=== PATIENT | female | born 1940 | race Caucasian/White ===

== ENCOUNTER 2019-05-09 10:39 | Inpatient (IN) | payer MEDICARE, OTHER ==
[2019-05-09] MEDS ORDERED: Albuterol 0.083% 2.5 MG/3 ML Neb Soln NEB ONE ×2 (10:58→13:46)
--- NOTE | 2019-05-09 11:16 | EDM.PDOC ---
ED HPI GENERAL MEDICAL PROBLEM - General Chief Complaint: Respiratory Problem Stated Complaint: SOB ON OXYGEN Time Seen by Provider: 05/09/19 10:54 Source of Information: Reports: Patient, RN Notes Reviewed History Limitations: Reports: No Limitations - History of Present Illness INITIAL COMMENTS - FREE TEXT/NARRATIVE: Patient is a 78-year-old female who presents to the ED for the evaluation of increased shortness of breath. The patient is on 2 L chronically at home, but states she has been feeling increasingly more short of breath over the past couple days, she is now having issues completing complete sentences due to the shortness of breath. She notes she is unable to walk very far due to this as well. She is feeling lightheaded at times, as she believes she is breathing quite fast. She notes that she has a small amount of mid chest discomfort, when she coughs, or when she pushes on her chest. She is coughing up phlegm, this is yellow-tinged phlegm with a little bit of blood streaks in it as well. She was found to have a fever at time of triage of 101.1 F. Although she does not states she was having a fever at home. O2 sats on oxygen 2 L here is 94%. Patient states that she was in [place] visiting her daughter and spend quite a bit of time at the daughter's daycare, and was wondering if she did not get sick from a child there. She did receive a flu shot this year. Her primary care provider is Dr. Mackenzie. She is not having any abdominal pain, nor is she having any nausea/vomiting or diarrhea. - Related Data Allergies Allergy/AdvReac Type Severity Reaction Status Date / Time No Known Allergies Allergy Verified 05/09/19 10:56 Home Meds: Home Meds Budesonide/Formoterol [Symbicort 160-4.5 MCG] 05/09/19 [History] Losartan Potassium 05/09/19 [History] Losartan Potassium 05/09/19 [History] Omeprazole 05/09/19 [History] Simvastatin 05/09/19 [History] Torsemide 05/09/19 [History] predniSONE 05/09/19 [History] Past Medical History Respiratory History: Reports: COPD (on 2L chronic) ED ROS GENERAL - Review of Systems Review Of Systems: See Below Constitutional: Reports: Fever. Denies: Chills Respiratory: Reports: Shortness of Breath, Cough, Sputum Cardiovascular: Reports: Chest Pain (mid chest discomfort with cough/direct chest pressure) GI/Abdominal: Denies: Abdominal Pain, Diarrhea, Nausea, Vomiting Skin: Denies: Cyanosis, Pallor Neurological: Denies: Headache ED EXAM, GENERAL - Physical Exam Exam: See Below Exam Limited By: No Limitations General Appearance: Alert, WD/WN, Mild Distress (pt is speaking in broken sentences) Ears: Normal External Exam Nose: Normal Inspection Throat/Mouth: Normal Inspection, Normal Lips, Normal Teeth, Normal Gums, Normal Oropharynx, Normal Voice, No Airway Compromise Head: Atraumatic, Normocephalic Neck: Normal Inspection Respiratory/Chest: Decreased Breath Sounds (diffuse throughout), Rhonchi ( diffuse throughout), Wheezing (mild wheezing throughout), Prolonged Expiration Cardiovascular: Normal Peripheral Pulses, Regular Rate, Rhythm, No Murmur Peripheral Pulses: 3+: Radial (L), Radial (R) GI/Abdominal: Normal Bowel Sounds, Soft, Non-Tender, No Distention, No Mass Back Exam: Normal Inspection Extremities: Normal Inspection, Normal Capillary Refill Neurological: Alert, Oriented, Normal Cognition, No Motor/Sensory Deficits Psychiatric: Normal Affect, Normal Mood Skin Exam: Warm, Dry, Intact, Normal Color, No Rash EKG INTERPRETATION EKG Date: 05/09/19 Time: 11:14 Rhythm: NSR Rate (Beats/Min): 94 [place]: Normal P-Wave: Present QRS: Normal ST-T: Normal QT: Normal Comparison: NA - No Prior EKG EKG Interpretation Comments: Reviewed with Dr. Marcial and myself. No acute ischemic changes noted. Course - Vital Signs Last Recorded V/S: Last Vital Signs Temp 101.1 F H 05/09/19 10:51 Pulse 97 05/09/19 13:16 Resp 21 H 05/09/19 13:16 BP 167/73 H 05/09/19 13:16 Pulse Ox 97 05/09/19 13:16 - Orders/Labs/Meds Orders: Active Orders 24 hr Category Date Time Status EKG Documentation Completion [RC] STAT Care 05/09/19 11:00 Ordered Peripheral IV Care [RC] . DIRECTED Care 05/09/19 13:38 Ordered RT Aerosol Therapy [RC] ASDIRECTED Care 05/09/19 10:58 Ordered Chest 2V [CR] Stat Exams 05/09/19 11:00 Ordered CULTURE BLOOD [BC] Stat Lab 05/09/19 13:45 Ordered CULTURE BLOOD [BC] Stat Lab 05/09/19 13:45 Ordered PRO B-TYPE NATRIUR PEPT,BNPPRO [CHEM] Stat Lab 05/09/19 11:00 Ordered Sodium Chloride 0.9% [Saline Flush] Med 05/09/19 13:38 Ordered 10 ml FLUSH ASDIRECTED PRN Blood Culture x2 Reflex Set [OM.PC] Stat Oth 05/09/19 13:45 Ordered Peripheral IV Insertion Adult [OM.PC] Stat Oth 05/09/19 13:38 Ordered Medication Orders Sodium Chloride (Saline Flush) 10 ml FLUSH ASDIRECTED PRN PRN Reason: Keep Vein Open Labs: Laboratory Tests 05/09/19 05/09/19 05/09/19 Range/Units 11:20 11:20 11:20 WBC 13.32 H (3.98-10.04) K/mm3 RBC 3.80 L (3.98-5.22) M/mm3 Hgb 11.0 L (11.2-15.7) gm/dl Hct 36.2 (34.1-44.9) % MCV 95.3 H (79.4-94.8) fl MCH 28.9 (25.6-32.2) pg MCHC 30.4 L (32.2-35.5) g/dl RDW Std Deviation 44.3 (36.4-46.3) fL Plt Count 226 (182-369) K/mm3 MPV 8.7 L (9.4-12.3) fl Neutrophils % (Manual) 85 H (40-60) % Band Neutrophils % 0 (0-10) % Lymphocytes % (Manual) 7 L (20-40) % Atypical Lymphs % 0 % Monocytes % (Manual) 7 (2-10) % Eosinophils % (Manual) 1 (0.7-5.8) % Basophils % (Manual) 0 L (0.1-1.2) Platelet Estimate Adequate Anisocytosis 1+ slight RBC Morph Comment Not Reportable PT 10.3 (9.7-12.0) SECONDS INR 0.94 APTT 27 (22-31) SECONDS Puncture Site ABG pH (7.35-7.45) ABG pCO2 (35.0-45.0) mmHg ABG pO2 (80.0-100.0) mmHg ABG HCO3 (22.0-26.0) meq/L ABG O2 Saturation (96.0-97.0) % ABG Base Excess (-2-2.0) A-a Gradient mmHg O2 Delivery Device Oxygen Flow Rate FiO2 (21.00-100.00) % Sodium 144 (136-145) mEq/L Potassium 4.4 (3.5-5.1) mEq/L Chloride 103 (98-107) mEq/L Carbon Dioxide 35 H (21-32) mEq/L Anion Gap 10.4 (5-15) BUN 10 (7-18) mg/dL Creatinine 0.7 (0.55-1.02) mg/dL Est Cr Clr Drug Dosing 57.20 mL/min Estimated GFR (MDRD) > 60 (>60) mL/min BUN/Creatinine Ratio 14.3 (14-18) Glucose 127 H (83-115) mg/dL Calcium 9.1 (8.5-10.1) mg/dL Total Bilirubin 0.9 (0.2-1.0) mg/dL AST 18 (15-37) U/L ALT 19 (14-59) U/L Alkaline Phosphatase 62 (46-116) U/L Troponin I < 0.017 (0.00-0.056) ng/mL Total Protein 7.0 (6.4-8.2) g/dl Albumin 3.4 (3.4-5.0) g/dl Globulin 3.6 gm/dL Albumin/Globulin Ratio 0.9 L (1-2) 05/09/19 Range/Units 11:24 WBC (3.98-10.04) K/mm3 RBC (3.98-5.22) M/mm3 Hgb (11.2-15.7) gm/dl Hct (34.1-44.9) % MCV (79.4-94.8) fl MCH (25.6-32.2) pg MCHC (32.2-35.5) g/dl RDW Std Deviation (36.4-46.3) fL Plt Count (182-369) K/mm3 MPV (9.4-12.3) fl Neutrophils % (Manual) (40-60) % Band Neutrophils % (0-10) % Lymphocytes % (Manual) (20-40) % Atypical Lymphs % % Monocytes % (Manual) (2-10) % Eosinophils % (Manual) (0.7-5.8) % Basophils % (Manual) (0.1-1.2) Platelet Estimate Anisocytosis RBC Morph Comment PT (9.7-12.0) SECONDS INR APTT (22-31) SECONDS Puncture Site Lt radial ABG pH 7.40 (7.35-7.45) ABG pCO2 60.8 H (35.0-45.0) mmHg ABG pO2 66.0 L (80.0-100.0) mmHg ABG HCO3 36.4 H (22.0-26.0) meq/L ABG O2 Saturation 92.1 L (96.0-97.0) % ABG Base Excess 10.0 H (-2-2.0) A-a Gradient 58 mmHg O2 Delivery Device Nasal cannula Oxygen Flow Rate 2.0 FiO2 28.00 (21.00-100.00) % Sodium (136-145) mEq/L Potassium (3.5-5.1) mEq/L Chloride (98-107) mEq/L Carbon Dioxide (21-32) mEq/L Anion Gap (5-15) BUN (7-18) mg/dL Creatinine (0.55-1.02) mg/dL Est Cr Clr Drug Dosing mL/min Estimated GFR (MDRD) (>60) mL/min BUN/Creatinine Ratio (14-18) Glucose (83-115) mg/dL Calcium (8.5-10.1) mg/dL Total Bilirubin (0.2-1.0) mg/dL AST (15-37) U/L ALT (14-59) U/L Alkaline Phosphatase (46-116) U/L Troponin I (0.00-0.056) ng/mL Total Protein (6.4-8.2) g/dl Albumin (3.4-5.0) g/dl Globulin gm/dL Albumin/Globulin Ratio (1-2) Meds: Medications Generic Name Dose Route Start Last Admin Trade Name Freq PRN Reason Stop Dose Admin Sodium Chloride 10 ml 05/09/19 13:38 Saline Flush FLUSH ASDIRECTED PRN Keep Vein Open Discontinued Medications Generic Name Dose Route Start Last Admin Trade Name Angelq PRN Reason Stop Dose Admin Albuterol 2.5 mg 05/09/19 10:58 05/09/19 11:30 Proventil Neb Carlos NEB 05/09/19 10:59 2.5 mg ONETIME ONE Administration Albuterol 2.5 mg 05/09/19 13:46 Proventil Neb Renukan NEB 05/09/19 13:47 ONETIME ONE - Re-Assessments/Exams Free Text/Narrative Re-Assessment/Exam: 05/09/19 11:16 Patient presents to the ED for evaluation of increased shortness of breath while being on oxygen therapy. I did order albuterol nebulizer, EKG, and ABG, CBC, CMP, BNP, influenza swab, troponin, and coagulation studies to further evaluate her symptoms. I likely believe she has caught some sort of respiratory illness, pneumonia versus other while at the daycare. 05/09/19 13:38 Patient's laboratory work-up has been done, and does demonstrate an elevated white count at 13.32 with 85% neutrophils no bands. ABG shows stable respiratory acidosis, pH of 7.4, PCO2 of 60.8. Patient is metabolic panel is within normal limits, troponin is negative, EKG also demonstrated no acute abnormalities reviewed by myself or Dr. Marcial, her chest x-ray is also suggestive of right lower lobe pneumonia, official radiology read does confirm this: Chest: 2 views of the chest were obtained. Comparison: No prior chest imaging is available. Heart size is normal. Tortuous thoracic aorta is noted. Scoliosis is noted within the spine. Focal parenchymal density is noted within the right lung base. Lungs otherwise are clear. Impression: 1. Focal density within the right lung base. This may represent atelectasis, changes from aspiration or even small area of pneumonia if patient has infectious symptoms. 2. Scoliosis. 3. No other acute finding is seen. At this time I do believe the patient would benefit from hospitalization. I will repeat another nebulizer with her, and hope to get her admitted Departure - Departure Time of Disposition: 13:48 Disposition: Admitted As Inpatient 66 Condition: Fair Clinical Impression: Pneumonia Qualifiers: Pneumonia type: due to unspecified organism Laterality: right Lung location: lower lobe of lung Qualified Code(s): J18.9 - Pneumonia, unspecified organism - Discharge Information *PRESCRIPTION DRUG MONITORING PROGRAM REVIEWED*: No *COPY OF PRESCRIPTION DRUG MONITORING REPORT IN PATIENT NASIR: No Referrals: Carloz Mackenzie MD [Primary Care Provider] - Forms: ED Department Discharge Sepsis Event Note - Evaluation Sepsis Screening Result: Possible Sepsis Risk - Focused Exam Vital Signs: Vital Signs Temp Pulse Pulse Resp BP BP Pulse Ox 05/09/19 13:16 97 21 H 167/73 H 97 05/09/19 13:15 96 23 H 97 05/09/19 13:01 95 24 H 171/82 H 97 05/09/19 13:00 95 42 H 97 05/09/19 12:46 96 24 H 162/79 H 96 05/09/19 12:45 96 25 H 95 05/09/19 12:31 96 23 H 168/77 H 94 L 05/09/19 12:30 96 20 94 L 05/09/19 12:17 93 30 H 164/75 H 93 L 05/09/19 12:16 92 28 H 93 L 05/09/19 12:14 92 23 H 107/96 H 92 L 05/09/19 12:13 95 26 H 93 L 05/09/19 11:46 97 24 H 160/71 H 96 05/09/19 11:45 98 25 H 95 05/09/19 11:31 97 22 H 157/63 H 98 05/09/19 11:30 97 24 H 96 05/09/19 11:16 92 20 157/63 H 96 05/09/19 11:15 95 26 H 96 05/09/19 11:10 92 15 93 L 05/09/19 10:58 05/09/19 10:51 101.1 F H 94 18 132/76 94 L Pulse Ox 05/09/19 13:16 05/09/19 13:15 05/09/19 13:01 05/09/19 13:00 05/09/19 12:46 05/09/19 12:45 05/09/19 12:31 05/09/19 12:30 05/09/19 12:17 05/09/19 12:16 05/09/19 12:14 05/09/19 12:13 05/09/19 11:46 05/09/19 11:45 05/09/19 11:31 05/09/19 11:30 05/09/19 11:16 05/09/19 11:15 05/09/19 11:10 05/09/19 10:58 96 05/09/19 10:51 Date Exam was Performed: 05/09/19 Time Exam was Performed: 13:47 - My Orders Last 24 Hours: My Active Orders 05/09/19 10:58 RT Aerosol Therapy [RC] ASDIRECTED 05/09/19 11:00 EKG Documentation Completion [RC] STAT Chest 2V [CR] Stat PRO B-TYPE NATRIUR PEPT,BNPPRO [CHEM] Stat 05/09/19 13:38 Peripheral IV Care [RC] . DIRECTED Sodium Chloride 0.9% [Saline Flush] 10 ml FLUSH ASDIRECTED PRN Peripheral IV Insertion Adult [OM.PC] Stat 05/09/19 13:45 CULTURE BLOOD [BC] Stat CULTURE BLOOD [BC] Stat Blood Culture x2 Reflex Set [OM.PC] Stat - Assessment/Plan Last 24 Hours: My Active Orders 05/09/19 10:58 RT Aerosol Therapy [RC] ASDIRECTED 05/09/19 11:00 EKG Documentation Completion [RC] STAT Chest 2V [CR] Stat PRO B-TYPE NATRIUR PEPT,BNPPRO [CHEM] Stat 05/09/19 13:38 Peripheral IV Care [RC] . DIRECTED Sodium Chloride 0.9% [Saline Flush] 10 ml FLUSH ASDIRECTED PRN Peripheral IV Insertion Adult [OM.PC] Stat 05/09/19 13:45 CULTURE BLOOD [BC] Stat CULTURE BLOOD [BC] Stat Blood Culture x2 Reflex Set [OM.PC] Stat
[2019-05-09] MEDS ORDERED: Sodium Chloride 0.9% 10 ML Syringe FLUSH PRN (13:38)
[2019-05-09] MEDS ORDERED: cefTRIAXone 2 GM in Sodium Chloride 0.9% 100 ML IV ONE (13:56)
--- NOTE | 2019-05-09 14:03 | CR ---
Chest: Two views of the chest were obtained. Comparison: No prior chest imaging is available. Heart size is normal. Tortuous thoracic aorta is noted. Scoliosis is noted within the spine. Focal parenchymal density is noted within the right lung base. Lungs otherwise are clear. Impression: 1. Focal density within the right lung base. This may represent atelectasis, changes from aspiration or even small area of pneumonia if patient has infectious symptoms. 2. Scoliosis. 3. No other acute finding is seen. Diagnostic code #3 This report was dictated in [place] Standard Time
[2019-05-09] MEDS ORDERED: Albuterol 0.083% 2.5 MG/3 ML Neb Soln NEB PRN (15:15)
[2019-05-09] MEDS: Albuterol/Ipratropium 3.0-0.5 MG/3 ML Neb Soln NEB SCH ×2 (15:35→21:10)
[2019-05-09] MEDS ORDERED: Acetaminophen 325 MG Tab PO PRN (16:07)
[2019-05-09] MEDS ORDERED: Ondansetron 4 MG/2 ML SDV IV PRN (16:07)
--- NOTE | 2019-05-09 16:07 | PCM.HP.2 ---
H&P History of Present Illness - General Date of Service: 05/09/19 Admit Problem/Dx: Admission Diagnosis/Problem Admission Diagnosis/Problem Pneumonia - History of Present Illness Initial Comments - Free Text/Narative: 76-year-old female with history of oxygen dependent lung disease, which appears to be from restrictive lung disease from her scoliosis with a component of COPD , presented to the emergency room with worsening shortness of breath, weakness, cough with sputum production over the last 2 days. Patient states that she was in [place] at her daughters, who runs a daycare out of her home, for last 10 days. Several ill children were in the house with her. Yesterday she started having increasing cough with sputum production. Patient does states she has a moderate amount of sputum production on a normal day. Phlegm is yellow-tinged with a bit of blood streaking as well. She had a fever 101.1 in triage. She was found to be tachypneic with increased work of breathing in the emergency room. 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 She was started on 24-hour O2 at 1 L approximately 10+ years ago. She states she is normally on 1 to 2 L, 2 L with ambulation, at baseline. Patient also states that she has been off of her water pill, torsemide, for the last 4 days because she does not like to travel while taking it. She states she is on it for peripheral edema and not for heart failure. EKG showed a normal sinus rhythm with a ventricular rate of 94 bpm. In the emergency room chest x-ray showed a focal density within the right lung base. This may represent atelectasis, change from aspiration, or even small area of pneumonia patient has infectious symptoms. Also seen with severe scoliosis. Otherwise normal EKG. Laboratory test: WBC 13.32 with 0% bands and 85% neutrophils, hemoglobin 11.0, platelet count 226, sodium 144, potassium 4.4, chloride 103, bicarbonate 35, BUN 10, creatinine 0.7, glucose 127, troponin I less than 0.017. Arterial blood gas: pH 7.40, PCO2 of 60.8, PO2 of 66.0, HCO3 36.4, oxygen saturation 92.1% on 2 L nasal cannula. - Related Data Allergies/Adverse Reactions: Allergies Allergy/AdvReac Type Severity Reaction Status Date / Time No Known Allergies Allergy Verified 05/09/19 10:56 Home Medications: Home Meds Budesonide/Formoterol [Symbicort 160-4.5 MCG] 2 puff INH BID 05/09/19 [History] Fluticasone/Vilanterol [Breo Ellipta 100-25 MCG Inhalation Kit] 1 puff INH DAILY 05/09/19 [History] Losartan Potassium 25 mg PO DAILY 05/09/19 [History] Omeprazole 20 mg PO DAILY 05/09/19 [History] Simvastatin 20 mg PO DAILY 05/09/19 [History] Torsemide 20 mg PO DAILY 05/09/19 [History] Past Medical History HEENT History: Reports: Impaired Vision Cardiovascular History: Reports: Heart Failure, High Cholesterol, Hypertension Respiratory History: Reports: COPD, SOB Musculoskeletal History: Reports: Osteoporosis - Past Surgical History HEENT Surgical History: Reports: Cataract Surgery, Detached Retina Social & Family History - Family History Family Medical History: Noncontributory - Tobacco Use Smoking Status *Q: Never Smoker Second Hand Smoke Exposure: No - Caffeine Use Caffeine Use: Reports: Coffee Other Caffeine Use: 4 cups/day - Recreational Drug Use Recreational Drug Use: No H&P Review of Systems - Review of Systems: Review Of Systems: Comprehensive ROS is negative, except as noted in HPI. Exam - Exam Exam: See Below - Vital Signs Vital Signs: Last Vital Signs Temp 100.9 F H 05/09/19 14:43 Pulse 96 05/09/19 14:43 Resp 48 H 05/09/19 14:43 BP 130/58 L 05/09/19 14:43 Pulse Ox 94 L 05/09/19 15:35 Weight: 173 lb 9.6 oz - Exam Quality Assessment: Supplemental Oxygen General: Alert, Oriented, 4 HEENT: Conjunctiva Clear, Hearing Intact, Mucosa Moist & [place] Neck: Supple, Trachea Midline, 2 Lungs: Rhonchi (Throughout both lung hoffman). No: Normal Respiratory Effort ( Increased respiratory rate and effort) Cardiovascular: Regular Rate, Regular Rhythm GI/Abdominal Exam: Normal Bowel Sounds, Soft, Non-Tender, No Organomegaly, No Distention Extremities: Normal Inspection, Normal Range of Motion, Non-Tender, No Pedal Edema Skin: Warm, Dry, Intact Neuro Extensive - Mental Status: Alert, Oriented x3, Normal Mood/Affect, Normal Cognition, Memory Intact Neuro Extensive - Motor, Sensory, Reflexes: CN II-XII Intact Psychiatric: Alert, Normal Affect, Normal Mood - Patient Data Lab Results Last 24 hrs: Laboratory Results - last 24 hr 05/09/19 05/09/19 05/09/19 Range/Units 11:20 11:20 11:20 WBC 13.32 H (3.98-10.04) K/mm3 RBC 3.80 L (3.98-5.22) M/mm3 Hgb 11.0 L (11.2-15.7) gm/dl Hct 36.2 (34.1-44.9) % MCV 95.3 H (79.4-94.8) fl MCH 28.9 (25.6-32.2) pg MCHC 30.4 L (32.2-35.5) g/dl RDW Std Deviation 44.3 (36.4-46.3) fL Plt Count 226 (182-369) K/mm3 MPV 8.7 L (9.4-12.3) fl Neutrophils % (Manual) 85 H (40-60) % Band Neutrophils % 0 (0-10) % Lymphocytes % (Manual) 7 L (20-40) % Atypical Lymphs % 0 % Monocytes % (Manual) 7 (2-10) % Eosinophils % (Manual) 1 (0.7-5.8) % Basophils % (Manual) 0 L (0.1-1.2) Platelet Estimate Adequate Anisocytosis 1+ slight RBC Morph Comment Not Reportable PT 10.3 (9.7-12.0) SECONDS INR 0.94 APTT 27 (22-31) SECONDS Puncture Site ABG pH (7.35-7.45) ABG pCO2 (35.0-45.0) mmHg ABG pO2 (80.0-100.0) mmHg ABG HCO3 (22.0-26.0) meq/L ABG O2 Saturation (96.0-97.0) % ABG Base Excess (-2-2.0) A-a Gradient mmHg O2 Delivery Device Oxygen Flow Rate FiO2 (21.00-100.00) % Sodium 144 (136-145) mEq/L Potassium 4.4 (3.5-5.1) mEq/L Chloride 103 (98-107) mEq/L Carbon Dioxide 35 H (21-32) mEq/L Anion Gap 10.4 (5-15) BUN 10 (7-18) mg/dL Creatinine 0.7 (0.55-1.02) mg/dL Est Cr Clr Drug Dosing 57.20 mL/min Estimated GFR (MDRD) > 60 (>60) mL/min BUN/Creatinine Ratio 14.3 (14-18) Glucose 127 H (83-115) mg/dL Calcium 9.1 (8.5-10.1) mg/dL Total Bilirubin 0.9 (0.2-1.0) mg/dL AST 18 (15-37) U/L ALT 19 (14-59) U/L Alkaline Phosphatase 62 (46-116) U/L Troponin I < 0.017 (0.00-0.056) ng/mL NT-Pro-B Natriuret Pep (0-450) pg/mL Total Protein 7.0 (6.4-8.2) g/dl Albumin 3.4 (3.4-5.0) g/dl Globulin 3.6 gm/dL Albumin/Globulin Ratio 0.9 L (1-2) 05/09/19 05/09/19 Range/Units 11:20 11:24 WBC (3.98-10.04) K/mm3 RBC (3.98-5.22) M/mm3 Hgb (11.2-15.7) gm/dl Hct (34.1-44.9) % MCV (79.4-94.8) fl MCH (25.6-32.2) pg MCHC (32.2-35.5) g/dl RDW Std Deviation (36.4-46.3) fL Plt Count (182-369) K/mm3 MPV (9.4-12.3) fl Neutrophils % (Manual) (40-60) % Band Neutrophils % (0-10) % Lymphocytes % (Manual) (20-40) % Atypical Lymphs % % Monocytes % (Manual) (2-10) % Eosinophils % (Manual) (0.7-5.8) % Basophils % (Manual) (0.1-1.2) Platelet Estimate Anisocytosis RBC Morph Comment PT (9.7-12.0) SECONDS INR APTT (22-31) SECONDS Puncture Site Lt radial ABG pH 7.40 (7.35-7.45) ABG pCO2 60.8 H (35.0-45.0) mmHg ABG pO2 66.0 L (80.0-100.0) mmHg ABG HCO3 36.4 H (22.0-26.0) meq/L ABG O2 Saturation 92.1 L (96.0-97.0) % ABG Base Excess 10.0 H (-2-2.0) A-a Gradient 58 mmHg O2 Delivery Device Nasal cannula Oxygen Flow Rate 2.0 FiO2 28.00 (21.00-100.00) % Sodium (136-145) mEq/L Potassium (3.5-5.1) mEq/L Chloride (98-107) mEq/L Carbon Dioxide (21-32) mEq/L Anion Gap (5-15) BUN (7-18) mg/dL Creatinine (0.55-1.02) mg/dL Est Cr Clr Drug Dosing mL/min Estimated GFR (MDRD) (>60) mL/min BUN/Creatinine Ratio (14-18) Glucose (83-115) mg/dL Calcium (8.5-10.1) mg/dL Total Bilirubin (0.2-1.0) mg/dL AST (15-37) U/L ALT (14-59) U/L Alkaline Phosphatase (46-116) U/L Troponin I (0.00-0.056) ng/mL NT-Pro-B Natriuret Pep 351 (0-450) pg/mL Total Protein (6.4-8.2) g/dl Albumin (3.4-5.0) g/dl Globulin gm/dL Albumin/Globulin Ratio (1-2) Result Diagrams: 05/09/19 11:20 05/09/19 11:20 [facility] Results Last 24 hrs: Microbiology 05/09/19 12:44 Influenza Type A Antigen Screen - Final Nasal, Unspecified NEGATIVE INFLUENZA A VIRUS AG REFERENCE RANGE: NEGATIVE Influenza Type B Antigen Screen - Final NEGATIVE INFLUENZA B VIRUS AG REFERENCE RANGE: NEGATIVE Imaging Impressions Last 24 hrs: Chest: 2 views of the chest were obtained. Comparison: No prior chest imaging is available. Heart size is normal. Tortuous thoracic aorta is noted. Scoliosis is noted within the spine. Focal parenchymal density is noted within the right lung base. Lungs otherwise are clear. Impression: 1. Focal density within the right lung base. This may represent atelectasis, changes from aspiration or even small area of pneumonia if patient has infectious symptoms. 2. Scoliosis. 3. No other acute finding is seen. Sepsis Event Note - Evaluation Sepsis Screening Result: Possible Sepsis Risk - Focused Exam Vital Signs: Vital Signs Temp Temp Pulse Pulse Resp BP BP 05/09/19 15:35 05/09/19 14:43 100.9 F H 96 48 H 130/58 L 05/09/19 14:27 103 H 26 H 05/09/19 14:18 102 H 28 H 125/84 05/09/19 14:10 05/09/19 14:01 101 H 24 H 125/84 05/09/19 14:00 99 24 H 05/09/19 13:46 95 26 H 156/63 H 05/09/19 13:45 95 26 H 05/09/19 13:31 97 22 H 166/73 H 05/09/19 13:30 98 22 H 05/09/19 13:16 97 21 H 167/73 H 05/09/19 13:15 96 23 H 05/09/19 13:01 95 24 H 171/82 H 05/09/19 13:00 95 42 H 05/09/19 12:46 96 24 H 162/79 H 05/09/19 12:45 96 25 H 05/09/19 12:31 96 23 H 168/77 H 05/09/19 12:30 96 20 05/09/19 12:17 93 30 H 164/75 H 05/09/19 12:16 92 28 H 05/09/19 12:14 92 23 H 107/96 H 05/09/19 12:13 95 26 H 05/09/19 11:46 97 24 H 160/71 H 05/09/19 11:45 98 25 H 05/09/19 11:31 97 22 H 157/63 H 05/09/19 11:30 97 24 H 05/09/19 11:16 92 20 157/63 H 05/09/19 11:15 95 26 H 05/09/19 11:10 92 15 05/09/19 10:58 05/09/19 10:51 101.1 F H 94 18 132/76 Pulse Ox Pulse Ox 05/09/19 15:35 94 L 05/09/19 14:43 92 L 05/09/19 14:27 91 L 05/09/19 14:18 94 L 05/09/19 14:10 91 L 05/09/19 14:01 95 05/09/19 14:00 96 05/09/19 13:46 97 05/09/19 13:45 97 05/09/19 13:31 96 05/09/19 13:30 96 05/09/19 13:16 97 05/09/19 13:15 97 05/09/19 13:01 97 05/09/19 13:00 97 05/09/19 12:46 96 05/09/19 12:45 95 05/09/19 12:31 94 L 05/09/19 12:30 94 L 05/09/19 12:17 93 L 05/09/19 12:16 93 L 05/09/19 12:14 92 L 05/09/19 12:13 93 L 05/09/19 11:46 96 05/09/19 11:45 95 05/09/19 11:31 98 05/09/19 11:30 96 05/09/19 11:16 96 05/09/19 11:15 96 05/09/19 11:10 93 L 05/09/19 10:58 96 05/09/19 10:51 94 L Date Exam was Performed: 05/09/19 Time Exam was Performed: 18:47 Problem List Initiated/Reviewed/Updated: Yes Orders Last 24hrs: Active Orders 24 hr Category Date Time Status Admission Status [Patient Status] [ADT] Routine ADT 05/09/19 13:58 Active RT Aerosol Therapy [RC] ASDIRECTED Care 05/09/19 10:58 Active RT Chest Physiotherapy [RC] ASDIRECTED Care 05/09/19 15:08 Active RT Incentive Spirometry [RC] ASDIRECTED Care 05/09/19 15:08 Active Heart Healthy Diet [DIET] Diet 05/09/19 Dinner Active CULTURE BLOOD [BC] Stat Lab 05/09/19 14:05 Received CULTURE BLOOD [BC] Stat Lab 05/09/19 14:10 Received CULTURE SPUTUM + SMEAR [RM] Routine Lab 05/09/19 15:08 Ordered RESPIRATORY PANEL Routine Lab 05/09/19 15:20 Received Albuterol [Proventil Neb Soln] Med 05/09/19 15:15 Active 2.5 mg NEB Q2H PRN Albuterol/Ipratropium [DuoNeb 3.0-0.5 MG/3 ML] Med 05/09/19 15:30 Active 3 ml NEB Q6HRRT Azithromycin [Zithromax] Med 05/10/19 14:00 Active 250 mg PO Q24H Azithromycin [Zithromax] Med 05/10/19 13:57 Once 500 mg PO ONETIME ONE Sodium Chloride 0.9% [Saline Flush] Med 05/09/19 13:38 Active 10 ml FLUSH ASDIRECTED PRN cefTRIAXone [Rocephin] 1 gm Med 05/10/19 14:00 Active Sodium Chloride 0.9% [Normal Saline] 100 ml IV Q24H Blood Culture x2 Reflex Set [OM.PC] Stat Oth 05/09/19 13:45 Ordered Peripheral IV Insertion Adult [OM.PC] Stat Ot 05/09/19 13:38 Ordered Medication Orders Albuterol (Proventil Neb Soln) 2.5 mg NEB Q2H PRN PRN Reason: Dyspnea Albuterol/Ipratropium (Duoneb 3.0-0.5 Mg/3 Ml) 3 ml NEB Q6HRRT [facility] Last Admin: 05/09/19 15:35 Dose: 3 ml Azithromycin (Zithromax) 500 mg PO ONETIME ONE Stop: 05/10/19 13:58 Azithromycin (Zithromax) 250 mg PO Q24H GOOD Stop: 05/14/19 14:01 Ceftriaxone Sodium 1 gm/ (Sodium Chloride) 100 mls @ 200 mls/hr IV Q24H GOOD Stop: 05/16/19 14:01 Sodium Chloride (Saline Flush) 10 ml FLUSH ASDIRECTED PRN PRN Reason: Keep Vein Open Assessment/Plan Comment:: Assessment * Right lower lobe pneumonia, community-acquired * Chest x-ray confirmed * Started on Rocephin 1 g and Zithromax 500 mg in the emergency room * Blood cultures drawn in the emergency room * 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 starting tomorrow for 4 days * DuoNeb every 6 hours * Albuterol neb every 2 hours as needed * Mucinex 600 mg 3 times daily first dose now * CBC, CMP, C-reactive protein, mag in the morning * FiO2 to keep SPO2 between 90 and 94 * Torsemide 20 mg now and then restart daily * Hold simvastatin while on azithromycin * Respiratory panel, sputum culture * I-S, Acapella * VTE prophylaxis Lovenox * CODE STATUS: Full code * Anticipated length of stay 2 to 3 days - Mortality Measure Prognosis:: Good
[2019-05-09] MEDS: guaiFENesin 600 MG Tab.ER PO SCH ×2 (16:58→21:29)
[2019-05-09] MEDS: Torsemide 20 MG Tab PO SCH (16:58)
[2019-05-09] MEDS ORDERED: Azithromycin 250 MG Tab PO ONE (17:30)
[2019-05-10] MEDS: Albuterol/Ipratropium 3.0-0.5 MG/3 ML Neb Soln NEB SCH ×4 (03:06→21:31)
[2019-05-10] MEDS: Pantoprazole 40 MG Tab.CR PO SCH (06:07)
[2019-05-10] MEDS ORDERED: Magnesium Sulfate/Water 2 GM in Premix Bag 1 BAG IV ONE (06:40)
[2019-05-10] MEDS ORDERED: Sodium Chloride 0.9% 250 ML ONE (08:24)
[2019-05-10] MEDS: Torsemide 20 MG Tab PO SCH (08:27)
[2019-05-10] MEDS: guaiFENesin 600 MG Tab.ER PO SCH ×3 (08:29→20:46)
[2019-05-10] MEDS: Losartan 25 MG Tab PO SCH (08:33)
[2019-05-10] MEDS: Enoxaparin 40 MG/0.4 ML Syringe SUBCUT SCH (08:38)
--- NOTE | 2019-05-10 09:01 | PCM.PN ---
- General Info Date of Service: 05/10/19 Admission Dx/Problem (Free Text): Admission Diagnosis/Problem Admission Diagnosis/Problem Pneumonia Functional Status: Reports: Pain Controlled, Tolerating Diet, Ambulating, Urinating, Incentive Spirometry, Other (acapella ). Denies: New Symptoms - Review of Systems General: Reports: No Symptoms. Denies: Fever, Weakness, Fatigue, Malaise, Chills HEENT: Reports: No Symptoms. Denies: Headaches, Sore Throat Pulmonary: Reports: Cough, Sputum, Wheezing (at baseline). Denies: Shortness of Breath, Pleuritic Chest Pain Cardiovascular: Reports: Dyspnea on Exertion. Denies: Chest Pain, Palpitations Gastrointestinal: Reports: No Symptoms. Denies: Abdominal Pain, Constipation, Diarrhea, Nausea, Vomiting Genitourinary: Reports: No Symptoms. Denies: Pain Musculoskeletal: Reports: No Symptoms Skin: Reports: No Symptoms. Denies: Cyanosis Neurological: Reports: No Symptoms. Denies: Confusion, Pre-Existing Deficit, Difficulty Walking, Gait Disturbance Psychiatric: Reports: No Symptoms - Patient Data Vitals - Most Recent: Last Vital Signs Temp 98.2 F 05/10/19 08:32 Pulse 87 05/10/19 08:32 Resp 19 05/10/19 08:32 BP 126/64 05/10/19 08:33 Pulse Ox 93 L 05/10/19 08:32 Weight - Most Recent: 174 lb 11.2 oz I&O - Last 24 Hours: Intake & Output 05/09/19 05/10/19 05/10/19 22:59 06:59 14:59 Intake Total 180 500 Output Total 200 1300 Balance -20 -800 Lab Results Last 24 Hours: Laboratory Results - last 24 hr 05/09/19 05/09/19 05/09/19 Range/Units 11:20 11:20 11:20 WBC 13.32 H (3.98-10.04) K/mm3 RBC 3.80 L (3.98-5.22) M/mm3 Hgb 11.0 L (11.2-15.7) gm/dl Hct 36.2 (34.1-44.9) % MCV 95.3 H (79.4-94.8) fl MCH 28.9 (25.6-32.2) pg MCHC 30.4 L (32.2-35.5) g/dl RDW Std Deviation 44.3 (36.4-46.3) fL Plt Count 226 (182-369) K/mm3 MPV 8.7 L (9.4-12.3) fl Neut % (Auto) (34.0-71.1) % Lymph % (Auto) (19.3-51.7) % [place] % (Auto) (4.7-12.5) % Eos % (Auto) (0.7-5.8) Baso % (Auto) (0.1-1.2) % Neut # (Auto) (1.56-6.13) K/mm3 Lymph # (Auto) (1.18-3.74) K/mm3 [place] # (Auto) (0.24-0.36) K/mm3 Eos # (Auto) (0.04-0.36) K/mm3 Baso # (Auto) (0.01-0.08) K/mm3 Neutrophils % (Manual) 85 H (40-60) % Band Neutrophils % 0 (0-10) % Lymphocytes % (Manual) 7 L (20-40) % Atypical Lymphs % 0 % Monocytes % (Manual) 7 (2-10) % Eosinophils % (Manual) 1 (0.7-5.8) % Basophils % (Manual) 0 L (0.1-1.2) Platelet Estimate Adequate Anisocytosis 1+ slight RBC Morph Comment Not Reportable PT 10.3 (9.7-12.0) SECONDS INR 0.94 APTT 27 (22-31) SECONDS Puncture Site ABG pH (7.35-7.45) ABG pCO2 (35.0-45.0) mmHg ABG pO2 (80.0-100.0) mmHg ABG HCO3 (22.0-26.0) meq/L ABG O2 Saturation (96.0-97.0) % ABG Base Excess (-2-2.0) A-a Gradient mmHg O2 Delivery Device Oxygen Flow Rate FiO2 (21.00-100.00) % Sodium 144 (136-145) mEq/L Potassium 4.4 (3.5-5.1) mEq/L Chloride 103 (98-107) mEq/L Carbon Dioxide 35 H (21-32) mEq/L Anion Gap 10.4 (5-15) BUN 10 (7-18) mg/dL Creatinine 0.7 (0.55-1.02) mg/dL Est Cr Clr Drug Dosing 57.20 mL/min Estimated GFR (MDRD) > 60 (>60) mL/min BUN/Creatinine Ratio 14.3 (14-18) Glucose 127 H (83-115) mg/dL Calcium 9.1 (8.5-10.1) mg/dL Magnesium (1.8-2.4) mg/dl Total Bilirubin 0.9 (0.2-1.0) mg/dL AST 18 (15-37) U/L ALT 19 (14-59) U/L Alkaline Phosphatase 62 (46-116) U/L Troponin I < 0.017 (0.00-0.056) ng/mL C-Reactive Protein (<1.0) mg/dL NT-Pro-B Natriuret Pep (0-450) pg/mL Total Protein 7.0 (6.4-8.2) g/dl Albumin 3.4 (3.4-5.0) g/dl Globulin 3.6 gm/dL Albumin/Globulin Ratio 0.9 L (1-2) 05/09/19 05/09/19 05/10/19 Range/Units 11:20 11:24 05:08 WBC 11.83 H (3.98-10.04) K/mm3 RBC 3.44 L (3.98-5.22) M/mm3 Hgb 10.0 L (11.2-15.7) gm/dl Hct 33.0 L (34.1-44.9) % MCV 95.9 H (79.4-94.8) fl MCH 29.1 (25.6-32.2) pg MCHC 30.3 L (32.2-35.5) g/dl RDW Std Deviation 45.4 (36.4-46.3) fL Plt Count 199 (182-369) K/mm3 MPV 9.1 L (9.4-12.3) fl Neut % (Auto) 78.4 H (34.0-71.1) % Lymph % (Auto) 12.3 L (19.3-51.7) % [place] % (Auto) 8.8 (4.7-12.5) % Eos % (Auto) 0.2 L (0.7-5.8) Baso % (Auto) 0.1 (0.1-1.2) % Neut # (Auto) 9.29 H (1.56-6.13) K/mm3 Lymph # (Auto) 1.45 (1.18-3.74) K/mm3 [place] # (Auto) 1.04 H (0.24-0.36) K/mm3 Eos # (Auto) 0.02 L (0.04-0.36) K/mm3 Baso # (Auto) 0.01 (0.01-0.08) K/mm3 Neutrophils % (Manual) (40-60) % Band Neutrophils % (0-10) % Lymphocytes % (Manual) (20-40) % Atypical Lymphs % % Monocytes % (Manual) (2-10) % Eosinophils % (Manual) (0.7-5.8) % Basophils % (Manual) (0.1-1.2) Platelet Estimate Anisocytosis RBC Morph Comment PT (9.7-12.0) SECONDS INR APTT (22-31) SECONDS Puncture Site Lt radial ABG pH 7.40 (7.35-7.45) ABG pCO2 60.8 H (35.0-45.0) mmHg ABG pO2 66.0 L (80.0-100.0) mmHg ABG HCO3 36.4 H (22.0-26.0) meq/L ABG O2 Saturation 92.1 L (96.0-97.0) % ABG Base Excess 10.0 H (-2-2.0) A-a Gradient 58 mmHg O2 Delivery Device Nasal cannula Oxygen Flow Rate 2.0 FiO2 28.00 (21.00-100.00) % Sodium (136-145) mEq/L Potassium (3.5-5.1) mEq/L Chloride (98-107) mEq/L Carbon Dioxide (21-32) mEq/L Anion Gap (5-15) BUN (7-18) mg/dL Creatinine (0.55-1.02) mg/dL Est Cr Clr Drug Dosing mL/min Estimated GFR (MDRD) (>60) mL/min BUN/Creatinine Ratio (14-18) Glucose (83-115) mg/dL Calcium (8.5-10.1) mg/dL Magnesium (1.8-2.4) mg/dl Total Bilirubin (0.2-1.0) mg/dL AST (15-37) U/L ALT (14-59) U/L Alkaline Phosphatase (46-116) U/L Troponin I (0.00-0.056) ng/mL C-Reactive Protein (<1.0) mg/dL NT-Pro-B Natriuret Pep 351 (0-450) pg/mL Total Protein (6.4-8.2) g/dl Albumin (3.4-5.0) g/dl Globulin gm/dL Albumin/Globulin Ratio (1-2) 05/10/19 Range/Units 05:08 WBC (3.98-10.04) K/mm3 RBC (3.98-5.22) M/mm3 Hgb (11.2-15.7) gm/dl Hct (34.1-44.9) % MCV (79.4-94.8) fl MCH (25.6-32.2) pg MCHC (32.2-35.5) g/dl RDW Std Deviation (36.4-46.3) fL Plt Count (182-369) K/mm3 MPV (9.4-12.3) fl Neut % (Auto) (34.0-71.1) % Lymph % (Auto) (19.3-51.7) % [place] % (Auto) (4.7-12.5) % Eos % (Auto) (0.7-5.8) Baso % (Auto) (0.1-1.2) % Neut # (Auto) (1.56-6.13) K/mm3 Lymph # (Auto) (1.18-3.74) K/mm3 [place] # (Auto) (0.24-0.36) K/mm3 Eos # (Auto) (0.04-0.36) K/mm3 Baso # (Auto) (0.01-0.08) K/mm3 Neutrophils % (Manual) (40-60) % Band Neutrophils % (0-10) % Lymphocytes % (Manual) (20-40) % Atypical Lymphs % % Monocytes % (Manual) (2-10) % Eosinophils % (Manual) (0.7-5.8) % Basophils % (Manual) (0.1-1.2) Platelet Estimate Anisocytosis RBC Morph Comment PT (9.7-12.0) SECONDS INR APTT (22-31) SECONDS Puncture Site ABG pH (7.35-7.45) ABG pCO2 (35.0-45.0) mmHg ABG pO2 (80.0-100.0) mmHg ABG HCO3 (22.0-26.0) meq/L ABG O2 Saturation (96.0-97.0) % ABG Base Excess (-2-2.0) A-a Gradient mmHg O2 Delivery Device Oxygen Flow Rate FiO2 (21.00-100.00) % Sodium 143 (136-145) mEq/L Potassium 3.4 L (3.5-5.1) mEq/L Chloride 101 (98-107) mEq/L Carbon Dioxide 38 H (21-32) mEq/L Anion Gap 7.4 (5-15) BUN 15 (7-18) mg/dL Creatinine 0.7 (0.55-1.02) mg/dL Est Cr Clr Drug Dosing 57.20 mL/min Estimated GFR (MDRD) > 60 (>60) mL/min BUN/Creatinine Ratio 21.4 H (14-18) Glucose 106 (83-115) mg/dL Calcium 8.3 L (8.5-10.1) mg/dL Magnesium 1.7 L (1.8-2.4) mg/dl Total Bilirubin 0.8 (0.2-1.0) mg/dL AST 18 (15-37) U/L ALT 14 (14-59) U/L Alkaline Phosphatase 48 (46-116) U/L Troponin I (0.00-0.056) ng/mL C-Reactive Protein 15.3 H* (<1.0) mg/dL NT-Pro-B Natriuret Pep (0-450) pg/mL Total Protein 6.5 (6.4-8.2) g/dl Albumin 3.0 L (3.4-5.0) g/dl Globulin 3.5 gm/dL Albumin/Globulin Ratio 0.9 L (1-2) [place] Results Last 24 Hours: Microbiology 05/09/19 15:35 Gram Stain - Final Sputum - Expectorated 05/09/19 12:44 Influenza Type A Antigen Screen - Final Nasal, Unspecified NEGATIVE INFLUENZA A VIRUS AG REFERENCE RANGE: NEGATIVE Influenza Type B Antigen Screen - Final NEGATIVE INFLUENZA B VIRUS AG REFERENCE RANGE: NEGATIVE Med Orders - Current: Current Medications Acetaminophen (Tylenol) 650 mg PO Q4H PRN PRN Reason: Pain (Mild 1-3)/fever Albuterol (Proventil Neb Soln) 2.5 mg NEB Q2H PRN PRN Reason: Dyspnea Albuterol/Ipratropium (Duoneb 3.0-0.5 Mg/3 Ml) 3 ml NEB Q6HRRT REPLACED BY [facility] Last Admin: 05/10/19 03:06 Dose: 3 ml Azithromycin (Zithromax) 250 mg PO Q24H REPLACED BY [facility] Stop: 05/14/19 17:01 Enoxaparin Sodium (Lovenox) 40 mg SUBCUT DAILY REPLACED BY [facility] Last Admin: 05/10/19 08:38 Dose: 40 mg Guaifenesin (Mucinex) 600 mg PO TID REPLACED BY [facility] Last Admin: 05/10/19 08:29 Dose: 600 mg Ceftriaxone Sodium 1 gm/ (Sodium Chloride) 100 mls @ 200 mls/hr IV Q24H REPLACED BY [facility] Stop: 05/16/19 14:01 Losartan Potassium (Cozaar) 25 mg PO DAILY REPLACED BY [facility] Last Admin: 05/10/19 08:33 Dose: 25 mg Ondansetron HCl (Zofran) 4 mg IV Q4H PRN PRN Reason: Nausea/Vomiting Pantoprazole Sodium (Protonix) 40 mg PO DAILY@0700 REPLACED BY [facility] Last Admin: 05/10/19 06:07 Dose: 40 mg Sodium Chloride (Saline Flush) 10 ml FLUSH ASDIRECTED PRN PRN Reason: Keep Vein Open Torsemide (Demadex) 20 mg PO DAILY REPLACED BY [facility] Last Admin: 05/10/19 08:27 Dose: 20 mg Discontinued Medications Albuterol (Proventil Neb Soln) 2.5 mg NEB ONETIME ONE Stop: 05/09/19 10:59 Last Admin: 05/09/19 11:30 Dose: 2.5 mg Albuterol (Proventil Neb Soln) 2.5 mg NEB ONETIME ONE Stop: 05/09/19 13:47 Last Admin: 05/09/19 14:09 Dose: 2.5 mg Azithromycin (Zithromax) 500 mg PO ONETIME ONE Stop: 05/09/19 17:31 Last Admin: 05/09/19 17:17 Dose: 500 mg Ceftriaxone Sodium 2 gm/ (Sodium Chloride) 100 mls @ 200 mls/hr IV ONETIME ONE Stop: 05/09/19 14:25 Last Admin: 05/09/19 14:25 Dose: 200 mls/hr Magnesium Sulfate 2 gm/ Premix 50 mls @ 25 mls/hr IV ONETIME ONE Stop: 05/10/19 08:39 Last Admin: 05/10/19 08:29 Dose: 25 mls/hr Potassium Chloride 10 meq/ (Premix) 100 mls @ 100 mls/hr IV Q1H GOOD Stop: 05/10/19 08:44 Sodium Chloride (Normal Saline (Advbag)) Confirm Administered Dose 250 mls @ as directed .ROUTE .STK-MED ONE Stop: 05/10/19 08:25 Last Admin: 05/10/19 08:40 Dose: 50 mls/hr - Exam Quality Assessment: Supplemental Oxygen (2L), DVT Prophylaxis General: Alert, Oriented, Cooperative, No Acute Distress HEENT: Pupils Equal, Pupils Reactive, Mucous Membr. Moist/[place] Neck: Supple, Trachea Midline Lungs: Decreased Breath Sounds, Rhonchi, Wheezing. No: Normal Respiratory Effort Cardiovascular: Regular Rate, Regular Rhythm GI/Abdominal Exam: Normal Bowel Sounds, Soft, Non-Tender, No Distention (Female) Exam: Deferred Back Exam: Decreased Range of Motion, Other (scoliosis ) Extremities: Normal Inspection, Normal Range of Motion, Non-Tender, No Pedal Edema, Normal Capillary Refill Peripheral Pulses: 2+: Radial (L), Radial (R), Dorsalis Pedis (L), Dorsalis Pedis (R) Skin: Warm, Dry, Intact Neurological: No New Focal Deficit Psy/Mental Status: Alert, Normal Affect, Normal Mood Sepsis Event Note - Evaluation Sepsis Screening Result: Sepsis Risk - Focused Exam Vital Signs: Vital Signs Temp Pulse Resp BP Pulse Ox Pulse Ox 05/10/19 08:33 126/64 05/10/19 08:32 98.2 F 87 19 126/64 93 L 05/10/19 03:48 98.1 F 74 22 H 102/82 95 05/10/19 03:07 99 05/09/19 21:33 97.9 F 89 22 H 110/56 L 92 L 05/09/19 21:10 92 L Date Exam was Performed: 05/10/19 Time Exam was Performed: 14:17 - Problem List & Annotations (1) Pneumonia SNOMED Code(s): 943704226 Code(s): J18.9 - PNEUMONIA, UNSPECIFIED ORGANISM Status: Acute Priority: High Current Visit: Yes Qualifiers: Pneumonia type: due to unspecified organism Laterality: right Lung location: lower lobe of lung Qualified Code(s): J18.9 - Pneumonia, unspecified organism (2) Restrictive lung disease SNOMED Code(s): 70432395 Code(s): J98.4 - OTHER DISORDERS OF LUNG Status: Chronic Priority: High Current Visit: Yes (3) HTN (hypertension) SNOMED Code(s): 53739129 Code(s): I10 - ESSENTIAL (PRIMARY) HYPERTENSION Status: Chronic Priority : Medium Current Visit: Yes Qualifiers: Hypertension type: unspecified Qualified Code(s): I10 - Essential (primary ) hypertension (4) Peripheral edema SNOMED Code(s): 767833583 Code(s): R60.9 - EDEMA, UNSPECIFIED Status: Chronic Priority: Medium Current Visit: Yes (5) GERD (gastroesophageal reflux disease) SNOMED Code(s): 312223166 Code(s): K21.9 - GASTRO-ESOPHAGEAL REFLUX DISEASE WITHOUT ESOPHAGITIS Status: Chronic Priority: Medium Current Visit: Yes Qualifiers: Esophagitis presence: esophagitis presence not specified Qualified Code(s) : K21.9 - Gastro-esophageal reflux disease without esophagitis (6) HLD (hyperlipidemia) SNOMED Code(s): 57771751 Code(s): E78.5 - HYPERLIPIDEMIA, UNSPECIFIED Status: Chronic Priority: Low Current Visit: No Qualifiers: Hyperlipidemia type: unspecified Qualified Code(s): E78.5 - Hyperlipidemia , unspecified - Problem List Review Problem List Initiated/Reviewed/Updated: Yes - Plan Plan:: Assessment * Right lower lobe pneumonia, community-acquired * Chest x-ray confirmed * Started on Rocephin 1 g and Zithromax 500 mg in the emergency room * Blood cultures negative thus far * 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 starting tomorrow for 4 days * DuoNeb every 6 hours * Albuterol neb every 2 hours as needed * Mucinex 600 mg 3 times daily first dose now * Repeat labs in the morning * FiO2 to keep SPO2 between 90 and 94 * Torsemide daily * Hold simvastatin while on azithromycin * Respiratory panel, sputum culture * I-S, Acapella * VTE prophylaxis Lovenox * CODE STATUS: Full code * Anticipated length of stay 2 to 3 days total
[2019-05-10] MEDS: Potassium Chloride 10 MEQ in Premix Bag 1 BAG IV SCH ×2 (10:33→12:49)
[2019-05-10] MEDS: methylPREDNISolone Sodium Succinate 40 MG/1 ML SDV IVPUSH SCH ×2 (12:49→20:47)
[2019-05-10] MEDS ORDERED: Sodium Chloride 0.9% 100 ML ONE (14:16)
[2019-05-10] MEDS: cefTRIAXone 1 GM in Sodium Chloride 0.9% 100 ML IV SCH (15:01)
[2019-05-10] MEDS: Azithromycin 250 MG Tab PO SCH (16:20)
[2019-05-11] MEDS: Albuterol/Ipratropium 3.0-0.5 MG/3 ML Neb Soln NEB SCH ×4 (02:46→20:45)
[2019-05-11] MEDS: methylPREDNISolone Sodium Succinate 40 MG/1 ML SDV IVPUSH SCH ×2 (03:29→14:14)
[2019-05-11] MEDS: Pantoprazole 40 MG Tab.CR PO SCH (06:41)
--- NOTE | 2019-05-11 06:58 | PCM.PN ---
- General Info Date of Service: 05/11/19 Admission Dx/Problem (Free Text): Admission Diagnosis/Problem Admission Diagnosis/Problem Pneumonia Functional Status: Reports: Pain Controlled, Tolerating Diet, Ambulating, Urinating, Incentive Spirometry, Other (acapella ). Denies: New Symptoms - Review of Systems General: Reports: No Symptoms. Denies: Fever, Weakness, Fatigue, Malaise, Chills HEENT: Reports: No Symptoms. Denies: Headaches, Sore Throat Pulmonary: Reports: Cough, Sputum, Wheezing (chronic ). Denies: Shortness of Breath, Pleuritic Chest Pain Cardiovascular: Reports: No Symptoms, Dyspnea on Exertion (chronic ). Denies: Chest Pain, Palpitations Gastrointestinal: Reports: No Symptoms. Denies: Abdominal Pain, Constipation, Diarrhea, Nausea, Vomiting Genitourinary: Reports: No Symptoms. Denies: Pain Musculoskeletal: Reports: No Symptoms Skin: Reports: No Symptoms. Denies: Cyanosis Neurological: Reports: No Symptoms. Denies: Confusion, Difficulty Walking, Gait Disturbance Psychiatric: Reports: No Symptoms - Patient Data Vitals - Most Recent: Last Vital Signs Temp 98.1 F 05/10/19 20:14 Pulse 87 05/11/19 02:47 Resp 22 H 05/11/19 02:47 BP 149/83 H 05/11/19 03:02 Pulse Ox 93 L 05/11/19 02:50 Weight - Most Recent: 174 lb 14.4 oz I&O - Last 24 Hours: Intake & Output 05/10/19 05/10/19 05/11/19 14:59 22:59 06:59 Intake Total 360 1600 900 Output Total 1850 8616 Balance 360 250 -2601 Lab Results Last 24 Hours: Laboratory Results - last 24 hr 05/09/19 05/11/19 05/11/19 Range/Units 15:20 06:00 06:00 WBC 8.37 (3.98-10.04) K/mm3 RBC 3.59 L (3.98-5.22) M/mm3 Hgb 10.4 L (11.2-15.7) gm/dl Hct 35.4 (34.1-44.9) % MCV 98.6 H (79.4-94.8) fl MCH 29.0 (25.6-32.2) pg MCHC 29.4 L (32.2-35.5) g/dl RDW Std Deviation 46.8 H (36.4-46.3) fL Plt Count 229 (182-369) K/mm3 MPV 9.4 (9.4-12.3) fl Neut % (Auto) 92.8 H (34.0-71.1) % Lymph % (Auto) 5.6 L (19.3-51.7) % [place] % (Auto) 1.4 L (4.7-12.5) % Eos % (Auto) 0 L (0.7-5.8) Baso % (Auto) 0.0 L (0.1-1.2) % Neut # (Auto) 7.76 H (1.56-6.13) K/mm3 Lymph # (Auto) 0.47 L (1.18-3.74) K/mm3 [place] # (Auto) 0.12 L (0.24-0.36) K/mm3 Eos # (Auto) 0.00 L (0.04-0.36) K/mm3 Baso # (Auto) 0.00 L (0.01-0.08) K/mm3 Sodium 144 (136-145) mEq/L Potassium 3.8 (3.5-5.1) mEq/L Chloride 102 (98-107) mEq/L Carbon Dioxide 39 H (21-32) mEq/L Anion Gap 6.8 (5-15) BUN 22 H (7-18) mg/dL Creatinine 0.7 (0.55-1.02) mg/dL Est Cr Clr Drug Dosing 57.61 mL/min Estimated GFR (MDRD) > 60 (>60) mL/min BUN/Creatinine Ratio 31.4 H (14-18) Glucose 174 H (83-115) mg/dL Calcium 8.4 L (8.5-10.1) mg/dL Magnesium 2.3 (1.8-2.4) mg/dl Total Bilirubin 0.4 (0.2-1.0) mg/dL AST 17 (15-37) U/L ALT 19 (14-59) U/L Alkaline Phosphatase 54 (46-116) U/L C-Reactive Protein 15.5 H* (<1.0) mg/dL Total Protein 7.2 (6.4-8.2) g/dl Albumin 3.1 L (3.4-5.0) g/dl Globulin 4.1 gm/dL Albumin/Globulin Ratio 0.8 L (1-2) Adenovirus (PCR) Not detected (Not Detected) B. pertussis DNA (PCR) Not detected (Not Detected) B.parapertussis DNA PCR Not detected (Not Detected) C. pneumoniae DNA (PCR) Not detected (Not Detected) Coronavirus (PCR) Detected H (Not Detected) Human Metapneumovir PCR Not detected (Not Detected) Influenza A (RT-PCR) Not detected (Not Detected) Influenza B (RT-PCR) Not detected (Not Detected) M. pneumoniae (PCR) Not detected (Not Detected) Parainfluen 1,2,3,4 PCR Not detected (Not Detected) RSV (PCR) Not detected (Not Detected) Entero/Rhino (PCR) Not detected (Not Detected) [place] Results Last 24 Hours: Microbiology 05/09/19 14:10 Aerobic Blood Culture - Preliminary Blood - Venous - Lab Draw NO GROWTH AFTER 1 DAY Anaerobic Blood Culture - Preliminary NO GROWTH AFTER 1 DAY 05/09/19 14:05 Aerobic Blood Culture - Preliminary Blood - Venous NO GROWTH AFTER 1 DAY Anaerobic Blood Culture - Preliminary NO GROWTH AFTER 1 DAY 05/09/19 15:35 Gram Stain - Final Sputum - Expectorated Sputum Culture - Preliminary Med Orders - Current: Current Medications Acetaminophen (Tylenol) 650 mg PO Q4H PRN PRN Reason: Pain (Mild 1-3)/fever Albuterol (Proventil Neb Soln) 2.5 mg NEB Q2H PRN PRN Reason: Dyspnea Albuterol/Ipratropium (Duoneb 3.0-0.5 Mg/3 Ml) 3 ml NEB Q6HRRT [facility] Last Admin: 05/11/19 02:46 Dose: 3 ml Azithromycin (Zithromax) 250 mg PO Q24H [facility] Stop: 05/14/19 17:01 Last Admin: 05/10/19 16:20 Dose: 250 mg Enoxaparin Sodium (Lovenox) 40 mg SUBCUT DAILY [facility] Last Admin: 05/10/19 08:38 Dose: 40 mg Guaifenesin (Mucinex) 600 mg PO TID [facility] Last Admin: 05/10/19 20:46 Dose: 600 mg Ceftriaxone Sodium 1 gm/ (Sodium Chloride) 100 mls @ 200 mls/hr IV Q24H [facility] Stop: 05/16/19 14:01 Last Admin: 05/10/19 15:01 Dose: 200 mls/hr Losartan Potassium (Cozaar) 25 mg PO DAILY [facility] Last Admin: 05/10/19 08:33 Dose: 25 mg Methylprednisolone Sodium Succinate (Solu-Medrol) 60 mg IVPUSH Q8H [facility] Last Admin: 05/11/19 03:29 Dose: 60 mg Ondansetron HCl (Zofran) 4 mg IV Q4H PRN PRN Reason: Nausea/Vomiting Pantoprazole Sodium (Protonix) 40 mg PO DAILY@0700 [facility] Last Admin: 05/11/19 06:41 Dose: Not Given Sodium Chloride (Saline Flush) 10 ml FLUSH ASDIRECTED PRN PRN Reason: Keep Vein Open Torsemide (Demadex) 20 mg PO DAILY [facility] Last Admin: 05/10/19 08:27 Dose: 20 mg Discontinued Medications Albuterol (Proventil Neb Soln) 2.5 mg NEB ONETIME ONE Stop: 05/09/19 10:59 Last Admin: 05/09/19 11:30 Dose: 2.5 mg Albuterol (Proventil Neb Soln) 2.5 mg NEB ONETIME ONE Stop: 05/09/19 13:47 Last Admin: 05/09/19 14:09 Dose: 2.5 mg Azithromycin (Zithromax) 500 mg PO ONETIME ONE Stop: 05/09/19 17:31 Last Admin: 05/09/19 17:17 Dose: 500 mg Ceftriaxone Sodium 2 gm/ (Sodium Chloride) 100 mls @ 200 mls/hr IV ONETIME ONE Stop: 05/09/19 14:25 Last Admin: 05/09/19 14:25 Dose: 200 mls/hr Magnesium Sulfate 2 gm/ Premix 50 mls @ 25 mls/hr IV ONETIME ONE Stop: 05/10/19 08:39 Last Admin: 05/10/19 08:29 Dose: 25 mls/hr Potassium Chloride 10 meq/ (Premix) 100 mls @ 100 mls/hr IV Q1H [facility] Stop: 05/10/19 08:44 Last Admin: 05/10/19 12:49 Dose: 100 mls/hr Sodium Chloride (Normal Saline (Advbag)) Confirm Administered Dose 250 mls @ as directed .ROUTE .STK-MED ONE Stop: 05/10/19 08:25 Last Admin: 05/10/19 08:40 Dose: 50 mls/hr Sodium Chloride (Normal Saline) Confirm Administered Dose 100 mls @ as directed .ROUTE .STK-MED ONE Stop: 05/10/19 14:17 Last Admin: 05/10/19 14:16 Dose: 25 mls/hr - Exam Quality Assessment: Supplemental Oxygen (2L - baseline ), DVT Prophylaxis General: Alert, Oriented, Cooperative, No Acute Distress HEENT: Pupils Equal, Pupils Reactive, Mucous Membr. Moist/[place] Neck: Supple, Trachea Midline Lungs: Normal Respiratory Effort, Decreased Breath Sounds. No: Crackles, Rhonchi, Wheezing GI/Abdominal Exam: Normal Bowel Sounds, Soft, Non-Tender, No Distention (Female) Exam: Deferred Back Exam: Decreased Range of Motion, Other (Scoliosis ) Extremities: Normal Inspection, Normal Range of Motion, Non-Tender, No Pedal Edema, Normal Capillary Refill Peripheral Pulses: 3+: Radial (L), Radial (R), Dorsalis Pedis (L), Dorsalis Pedis (R) Skin: Warm, Dry, Intact Neurological: No New Focal Deficit Psy/Mental Status: Alert, Normal Affect, Normal Mood Sepsis Event Note - Evaluation Sepsis Screening Result: No Definite Risk - Focused Exam Vital Signs: Vital Signs Temp Pulse Resp BP Pulse Ox Pulse Ox 05/11/19 03:02 149/83 H 05/11/19 02:50 93 L 05/11/19 02:47 87 22 H 162/85 H 94 L 05/10/19 22:00 95 05/10/19 21:33 97 05/10/19 20:14 98.1 F 73 20 138/74 95 Date Exam was Performed: 05/11/19 Time Exam was Performed: 10:48 - Problem List & Annotations (1) Pneumonia SNOMED Code(s): 702844497 Code(s): J18.9 - PNEUMONIA, UNSPECIFIED ORGANISM Status: Acute Priority: High Current Visit: Yes Qualifiers: Pneumonia type: due to unspecified organism Laterality: right Lung location: lower lobe of lung Qualified Code(s): J18.9 - Pneumonia, unspecified organism (2) Restrictive lung disease SNOMED Code(s): 64488953 Code(s): J98.4 - OTHER DISORDERS OF LUNG Status: Chronic Priority: High Current Visit: Yes (3) HTN (hypertension) SNOMED Code(s): 69146033 Code(s): I10 - ESSENTIAL (PRIMARY) HYPERTENSION Status: Chronic Priority : Medium Current Visit: Yes Qualifiers: Hypertension type: unspecified Qualified Code(s): I10 - Essential (primary ) hypertension (4) Peripheral edema SNOMED Code(s): 463976448 Code(s): R60.9 - EDEMA, UNSPECIFIED Status: Chronic Priority: Medium Current Visit: Yes (5) GERD (gastroesophageal reflux disease) SNOMED Code(s): 930550369 Code(s): K21.9 - GASTRO-ESOPHAGEAL REFLUX DISEASE WITHOUT ESOPHAGITIS Status: Chronic Priority: Medium Current Visit: Yes Qualifiers: Esophagitis presence: esophagitis presence not specified Qualified Code(s) : K21.9 - Gastro-esophageal reflux disease without esophagitis (6) HLD (hyperlipidemia) SNOMED Code(s): 45288641 Code(s): E78.5 - HYPERLIPIDEMIA, UNSPECIFIED Status: Chronic Priority: Low Current Visit: No Qualifiers: Hyperlipidemia type: unspecified Qualified Code(s): E78.5 - Hyperlipidemia , unspecified (7) Coronavirus infection, unspecified SNOMED Code(s): 239535148 Code(s): B34.2 - CORONAVIRUS INFECTION, UNSPECIFIED Status: Acute Priority: High Current Visit: Yes (8) Chronic respiratory failure with hypoxia, on home O2 therapy SNOMED Code(s): 574065459 Code(s): J96.11 - CHRONIC RESPIRATORY FAILURE WITH HYPOXIA; Z99.81 - DEPENDENCE ON SUPPLEMENTAL OXYGEN Status: Chronic Priority: Medium Current Visit: Yes (9) Scoliosis SNOMED Code(s): 192507469 Code(s): M41.9 - SCOLIOSIS, UNSPECIFIED Status: Chronic Priority: Medium Current Visit: Yes Qualifiers: Scoliosis type: unspecified scoliosis Spinal region: unspecified Qualified Code(s): M41.9 - Scoliosis, unspecified (10) Chronic cough SNOMED Code(s): 64422108 Code(s): R05 - COUGH Status: Chronic Priority: Medium Current Visit: Yes - Problem List Review Problem List Initiated/Reviewed/Updated: Yes - My Orders Last 24 Hours: My Active Orders 05/10/19 12:13 Consult to Case Management/Barrel Stave Inspector [CONS] Routine Consult to Occupational Therapy [OT Evaluation and Treatment] [CONS] Routine PT Evaluation and Treatment [CONS] Routine 05/10/19 12:19 Isolation [COMM] Routine 05/10/19 12:30 methylPREDNISolone Sod Succ [Solu-MEDROL] 60 mg IVPUSH Q8H - Plan Plan:: Assessment * Right lower lobe pneumonia, community-acquired * Chest x-ray confirmed * Started on Rocephin 1 g and Zithromax 500 mg in the emergency room * Blood cultures negative thus far * 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 for 4 days * DuoNeb every 6 hours * Albuterol neb every 2 hours as needed * Mucinex 600 mg 3 times daily * Repeat labs in the morning * FiO2 to keep SPO2 between 90 and 94 * Torsemide daily * Hold simvastatin while on azithromycin * Respiratory panel, sputum culture * IVP steroid - decrease dosing today * IS, Acapella * VTE prophylaxis Lovenox * CODE STATUS: Full code * Likely discharge tomorrow pending continued improvement
[2019-05-11] MEDS: Losartan 25 MG Tab PO SCH (09:42)
[2019-05-11] MEDS: Torsemide 20 MG Tab PO SCH (09:42)
[2019-05-11] MEDS: Enoxaparin 40 MG/0.4 ML Syringe SUBCUT SCH (09:42)
[2019-05-11] MEDS: guaiFENesin 600 MG Tab.ER PO SCH ×3 (09:42→20:16)
[2019-05-11] MEDS ORDERED: Docusate Sodium 100 MG Cap PO SCH (10:00)
[2019-05-11] MEDS: cefTRIAXone 1 GM in Sodium Chloride 0.9% 100 ML IV SCH (14:15)
[2019-05-11] MEDS: Azithromycin 250 MG Tab PO SCH (16:45)
[2019-05-12] MEDS: Albuterol/Ipratropium 3.0-0.5 MG/3 ML Neb Soln NEB SCH ×3 (04:03→14:35)
[2019-05-12] MEDS: methylPREDNISolone Sodium Succinate 40 MG/1 ML SDV IVPUSH SCH (04:04)
[2019-05-12] MEDS: Pantoprazole 40 MG Tab.CR PO SCH (06:13)
[2019-05-12] MEDS: Losartan 25 MG Tab PO SCH (08:29)
[2019-05-12] MEDS: guaiFENesin 600 MG Tab.ER PO SCH (08:29)
[2019-05-12] MEDS: Torsemide 20 MG Tab PO SCH (08:34)
[2019-05-12] MEDS: Enoxaparin 40 MG/0.4 ML Syringe SUBCUT SCH (08:34)
--- NOTE | 2019-05-12 11:39 | PCM.DCSUM1 ---
Discharge Summary - Hospital Course HPI Initial Comments: 76-year-old female with history of oxygen dependent lung disease, which appears to be from restrictive lung disease from her scoliosis with a component of COPD , presented to the emergency room with worsening shortness of breath, weakness, cough with sputum production over the last 2 days. Patient states that she was in [place] at her daughters, who runs a daycare out of her home, for last 10 days. Several ill children were in the house with her. Yesterday she started having increasing cough with sputum production. Patient does states she has a moderate amount of sputum production on a normal day. Phlegm is yellow-tinged with a bit of blood streaking as well. She had a fever 101.1 in triage. She was found to be tachypneic with increased work of breathing in the emergency room. 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 She was started on 24-hour O2 at 1 L approximately 10+ years ago. She states she is normally on 1 to 2 L, 2 L with ambulation, at baseline. Patient also states that she has been off of her water pill, torsemide, for the last 4 days because she does not like to travel while taking it. She states she is on it for peripheral edema and not for heart failure. EKG showed a normal sinus rhythm with a ventricular rate of 94 bpm. In the emergency room chest x-ray showed a focal density within the right lung base. This may represent atelectasis, change from aspiration, or even small area of pneumonia patient has infectious symptoms. Also seen with severe scoliosis. Otherwise normal EKG. Laboratory test: WBC 13.32 with 0% bands and 85% neutrophils, hemoglobin 11.0, platelet count 226, sodium 144, potassium 4.4, chloride 103, bicarbonate 35, BUN 10, creatinine 0.7, glucose 127, troponin I less than 0.017. Arterial blood gas: pH 7.40, PCO2 of 60.8, PO2 of 66.0, HCO3 36.4, oxygen saturation 92.1% on 2 L nasal cannula. Diagnosis: Stroke: No - Discharge Data Discharge Date: 05/12/19 Discharge Disposition: Home, Self-Care 01 Condition: Good - Referral to Home Health Primary Care Physician: Carloz Mackenzie MD - Patient Summary/Data Consults: Consultations 05/10/19 12:13 Consult to Case Management/Band Sawyer [CONS] Routine Consult to Occupational Therapy [OT Evaluation and Treatment] [CONS] Routine PT Evaluation and Treatment [CONS] Routine Hospital Course: Patient was diagnosed and admitted with right lower lobe pneumonia. She was treated with Rocephin and Zithromax with good results. Blood cultures at time of discharge were negative. Patient also had a positive PCR for coronavirus, likely setting her up for the secondary bacterial infection. She has significant restrictive lung disease secondary to her severe scoliosis on top of obstructive lung disease. She appears to be chronically hypercapnic and is on home O2. During hospitalization she was treated with DuoNeb, IV steroids, Mucinex, incentive spirometry and Acapella. Patient's oxygenation remained stable and even improved slightly during hospitalization. She also has a history of hypertension, peripheral edema, hyperlipidemia, and GERD. These were treated with her home medications. - Patient Instructions Diet: Heart Healthy Diet Activity: As Tolerated Driving: Do Not Drive Showering/Bathing: May Shower Other/Special Instructions: Start antibiotics today. Start prednisone tomorrow. Follow up with PCP 1-2 weeks. Stay away from small children. - Discharge Plan *PRESCRIPTION DRUG MONITORING PROGRAM REVIEWED*: No *COPY OF PRESCRIPTION DRUG MONITORING REPORT IN PATIENT NASIR: No Prescriptions/Med Rec: Azithromycin 250 mg PO DAILY #2 tablet Cefdinir [Omnicef] 300 mg PO BID #8 cap predniSONE [Prednisone] 50 mg PO DAILY #2 tablet Home Medications: Home Meds Budesonide/Formoterol [Symbicort 160-4.5 MCG] 2 puff INH BID 05/09/19 [History] Losartan Potassium 25 mg PO DAILY 05/09/19 [History] Omeprazole 20 mg PO DAILY 05/09/19 [History] Simvastatin 20 mg PO DAILY 05/09/19 [History] Torsemide 20 mg PO DAILY 05/09/19 [History] Azithromycin 250 mg PO DAILY #2 tablet 05/12/19 [Rx] Cefdinir [Omnicef] 300 mg PO BID #8 cap 05/12/19 [Rx] guaiFENesin [Mucinex] 600 mg PO TID tab.er 05/12/19 [Rx] predniSONE [Prednisone] 50 mg PO DAILY #2 tablet 05/12/19 [Rx] Oxygen Therapy Mode: Nasal Cannula Oxygen Flow Rate (L/min): 2 Patient Handouts: Sepsis, Adult, Community-Acquired Pneumonia, Adult Forms: ED Department Discharge Referrals: Carloz Mackenzie MD [Primary Care Provider] - (Pleaes call and schedule an apt. with Dr. Mackenzie in the next 7-10 days. ) - Discharge Summary/Plan Comment DC Time >30 min.: Yes Discharge Summary/Plan Comment: Take all antibiotics and finish prednisone. Follow-up with primary care in 1 to 2 weeks. Avoid contact with small and sick children. - General Info Date of Service: 05/12/19 Admission Dx/Problem (Free Text: Admission Diagnosis/Problem Admission Diagnosis/Problem Pneumonia Functional Status: Reports: Pain Controlled - Review of Systems General: Reports: No Symptoms HEENT: Reports: No Symptoms Pulmonary: Reports: Cough Cardiovascular: Reports: No Symptoms Gastrointestinal: Reports: No Symptoms Musculoskeletal: Reports: No Symptoms Skin: Reports: No Symptoms Neurological: Reports: No Symptoms Psychiatric: Reports: No Symptoms - Patient Data Vitals - Most Recent: Last Vital Signs Temp 97.7 F 05/12/19 08:31 Pulse 76 05/12/19 08:31 Resp 18 05/12/19 08:31 BP 111/61 05/12/19 08:31 Pulse Ox 93 L 05/12/19 09:32 Weight - Most Recent: 174 lb 9.6 oz I&O - Last 24 hours: Intake & Output 05/11/19 05/12/19 05/12/19 22:59 06:59 14:59 Intake Total 1690 800 180 Output Total 1500 1700 Balance 190 -900 180 Lab Results - Last 24 hrs: Laboratory Results - last 24 hr 05/12/19 05/12/19 Range/Units 05:52 05:52 WBC 14.89 H (3.98-10.04) K/mm3 RBC 3.76 L (3.98-5.22) M/mm3 Hgb 10.8 L (11.2-15.7) gm/dl Hct 37.7 (34.1-44.9) % MCV 100.3 H (79.4-94.8) fl MCH 28.7 (25.6-32.2) pg MCHC 28.6 L (32.2-35.5) g/dl RDW Std Deviation 47.0 H (36.4-46.3) fL Plt Count 280 (182-369) K/mm3 MPV 9.7 (9.4-12.3) fl Neut % (Auto) 90.3 H (34.0-71.1) % Lymph % (Auto) 4.4 L (19.3-51.7) % [place] % (Auto) 5.0 (4.7-12.5) % Eos % (Auto) 0 L (0.7-5.8) Baso % (Auto) 0.1 (0.1-1.2) % Neut # (Auto) 13.45 H (1.56-6.13) K/mm3 Lymph # (Auto) 0.66 L (1.18-3.74) K/mm3 [place] # (Auto) 0.74 H (0.24-0.36) K/mm3 Eos # (Auto) 0.00 L (0.04-0.36) K/mm3 Baso # (Auto) 0.01 (0.01-0.08) K/mm3 Manual Slide Review Abnormal smear Sodium 145 (136-145) mEq/L Potassium 3.7 (3.5-5.1) mEq/L Chloride 101 (98-107) mEq/L Carbon Dioxide 41 H* (21-32) mEq/L Anion Gap 6.7 (5-15) BUN 20 H (7-18) mg/dL Creatinine 0.6 (0.55-1.02) mg/dL Est Cr Clr Drug Dosing 67.21 mL/min Estimated GFR (MDRD) > 60 (>60) mL/min BUN/Creatinine Ratio 33.3 H (14-18) Glucose 146 H (83-115) mg/dL Calcium 8.4 L (8.5-10.1) mg/dL Magnesium 2.4 (1.8-2.4) mg/dl Total Bilirubin 0.3 (0.2-1.0) mg/dL AST 19 (15-37) U/L ALT 19 (14-59) U/L Alkaline Phosphatase 51 (46-116) U/L C-Reactive Protein 8.0 H* (<1.0) mg/dL Total Protein 7.2 (6.4-8.2) g/dl Albumin 3.1 L (3.4-5.0) g/dl Globulin 4.1 gm/dL Albumin/Globulin Ratio 0.8 L (1-2) BUCKY Results - Last 24 hrs: Microbiology 05/09/19 15:35 Gram Stain - Final Sputum - Expectorated Sputum Culture - Final Normal Marcia 05/09/19 14:10 Aerobic Blood Culture - Preliminary Blood - Venous - Lab Draw NO GROWTH AFTER 2 DAYS Anaerobic Blood Culture - Preliminary NO GROWTH AFTER 2 DAYS 05/09/19 14:05 Aerobic Blood Culture - Preliminary Blood - Venous NO GROWTH AFTER 2 DAYS Anaerobic Blood Culture - Preliminary NO GROWTH AFTER 2 DAYS Med Orders - Current: Current Medications Acetaminophen (Tylenol) 650 mg PO Q4H PRN PRN Reason: Pain (Mild 1-3)/fever Albuterol (Proventil Neb Soln) 2.5 mg NEB Q2H PRN PRN Reason: Dyspnea Albuterol/Ipratropium (Duoneb 3.0-0.5 Mg/3 Ml) 3 ml NEB Q6HRRT [facility] Last Admin: 05/12/19 09:31 Dose: 3 ml Azithromycin (Zithromax) 250 mg PO Q24H [facility] Stop: 05/14/19 17:01 Last Admin: 05/11/19 16:45 Dose: 250 mg Enoxaparin Sodium (Lovenox) 40 mg SUBCUT DAILY [facility] Last Admin: 05/12/19 08:34 Dose: 40 mg Guaifenesin (Mucinex) 600 mg PO TID [facility] Last Admin: 05/12/19 08:29 Dose: 600 mg Ceftriaxone Sodium 1 gm/ (Sodium Chloride) 100 mls @ 200 mls/hr IV Q24H [facility] Stop: 05/16/19 14:01 Last Admin: 05/11/19 14:15 Dose: 200 mls/hr Losartan Potassium (Cozaar) 25 mg PO DAILY [facility] Last Admin: 05/12/19 08:29 Dose: 25 mg Methylprednisolone Sodium Succinate (Solu-Medrol) 60 mg IVPUSH Q12H [facility] Last Admin: 05/12/19 04:04 Dose: 60 mg Ondansetron HCl (Zofran) 4 mg IV Q4H PRN PRN Reason: Nausea/Vomiting Pantoprazole Sodium (Protonix) 40 mg PO DAILY@0700 [facility] Last Admin: 05/12/19 06:13 Dose: 40 mg Sodium Chloride (Saline Flush) 10 ml FLUSH ASDIRECTED PRN PRN Reason: Keep Vein Open Torsemide (Demadex) 20 mg PO DAILY [facility] Last Admin: 05/12/19 08:34 Dose: 20 mg Discontinued Medications Albuterol (Proventil Neb Soln) 2.5 mg NEB ONETIME ONE Stop: 05/09/19 10:59 Last Admin: 05/09/19 11:30 Dose: 2.5 mg Albuterol (Proventil Neb Soln) 2.5 mg NEB ONETIME ONE Stop: 05/09/19 13:47 Last Admin: 05/09/19 14:09 Dose: 2.5 mg Azithromycin (Zithromax) 500 mg PO ONETIME ONE Stop: 05/09/19 17:31 Last Admin: 05/09/19 17:17 Dose: 500 mg Docusate Sodium (Colace) 200 mg PO DAILY [facility] Last Admin: 05/11/19 18:37 Dose: Not Given Ceftriaxone Sodium 2 gm/ (Sodium Chloride) 100 mls @ 200 mls/hr IV ONETIME ONE Stop: 05/09/19 14:25 Last Admin: 05/09/19 14:25 Dose: 200 mls/hr Magnesium Sulfate 2 gm/ Premix 50 mls @ 25 mls/hr IV ONETIME ONE Stop: 05/10/19 08:39 Last Admin: 05/10/19 08:29 Dose: 25 mls/hr Potassium Chloride 10 meq/ (Premix) 100 mls @ 100 mls/hr IV Q1H [facility] Stop: 05/10/19 08:44 Last Admin: 05/10/19 12:49 Dose: 100 mls/hr Sodium Chloride (Normal Saline (Advbag)) Confirm Administered Dose 250 mls @ as directed .ROUTE .STK-MED ONE Stop: 05/10/19 08:25 Last Admin: 05/10/19 08:40 Dose: 50 mls/hr Sodium Chloride (Normal Saline) Confirm Administered Dose 100 mls @ as directed .ROUTE .STK-MED ONE Stop: 05/10/19 14:17 Last Admin: 05/10/19 14:16 Dose: 25 mls/hr Methylprednisolone Sodium Succinate (Solu-Medrol) 60 mg IVPUSH Q8H [facility] Last Admin: 05/11/19 03:29 Dose: 60 mg - Exam Quality Assessment: Reports: Supplemental Oxygen General: Reports: Alert, Oriented HEENT: Reports: Pupils Equal, Pupils Reactive, EOMI, Mucous Membr. Moist/[place] Neck: Reports: Supple Lungs: Reports: Normal Respiratory Effort, Decreased Breath Sounds, Wheezing ( right anterior chest, mild) Cardiovascular: Reports: Regular Rate, Regular Rhythm GI/Abdominal Exam: Normal Bowel Sounds, Soft, Non-Tender, No Organomegaly, No Distention, No Abnormal Bruit, No Mass Extremities: Normal Inspection, Normal Range of Motion, Non-Tender, No Pedal Edema, Normal Capillary Refill Skin: Reports: Warm, Dry, Intact Psy/Mental Status: Reports: Alert, Normal Affect, Normal Mood
== END 2019-05-12 15:13 | disposition home or self-care (01) | DRG 194 ==
LOC: JD.ED 10:39 → JD.MS 13:58
PROVIDERS: ADMIT Family Medicine; ATTEND Family Medicine
DX: J18.9 Pneumonia, unspecified organism (principal); J44.9 Chronic obstructive pulmonary disease, unspecified; J96.11 Chronic respiratory failure with hypoxia; Z79.51 Long term (current) use of inhaled steroids; Z79.52 Long term (current) use of systemic steroids; J44.0 Chronic obstructive pulmonary disease with (acute) lower respiratory infection; J98.11 Atelectasis; M41.9 Scoliosis, unspecified; H54.7 Unspecified visual loss; I11.0 Hypertensive heart disease with heart failure; I50.9 Heart failure, unspecified; M81.0 Age-related osteoporosis without current pathological fracture; E78.5 Hyperlipidemia, unspecified; K21.9 Gastro-esophageal reflux disease without esophagitis; J98.4 Other disorders of lung; B34.2 Coronavirus infection, unspecified; Z98.49 Cataract extraction status, unspecified eye; Z99.81 Dependence on supplemental oxygen; Z79.899 Other long term (current) drug therapy
CPT/HCPCS: 36415; 36600; 71046; 71046-26; 80053; 82803; 83735; 83880; 84484; 85007; 85025; 85027; 85610; 85730; 86140; 87040; 87070; 87205; 87486; 87581; 87632; 87798; 87804; 93005; 93010; 94640; 94667; 94668; 94760; 94761; 97116-GP; 97161-GP; 97165-GO; 99222; 99232; 99239; 99284; 99285-25; A9270-GY; J0696; J1650; J2920; J3475; J3480; J7050; J7620-GY

== ENCOUNTER 2024-03-19 16:47 | Emergency (ER) | payer MEDICARE, OTHER ==
[2024-03-19] MEDS ORDERED: Sodium Chloride 0.9% 10 ML Syringe FLUSH PRN (17:35)
[2024-03-19] MEDS: Albuterol/Ipratropium 3.0-0.5 MG/3 ML Neb Soln NEB ONE (18:04)
[2024-03-19 18:32] LABS: BASOPHILS PERCENT AUTO 0.1 % (0.0-1.0); EOSINOPHILS PERCENT AUTO 0.1 % (0.0-6.0); HEMATOCRIT 36.5 % (37.0-47.0); HEMOGLOBIN 11.1 gm/dl (12.0-16.0); IMMATURE GRAN ABSOLUTE AUTO 0.06 K/mm3 (0.00-0.05); IMMATURE GRAN PERCENT AUTO 0.4 % (0.0-0.4); LYMPHOCYTES ABSOLUTE AUTO 1.8 K/mm3 (1.0-4.8); LYMPHOCYTES PERCENT AUTO 10.5 % (24.0-44.0); MEAN CORPUSCULAR HEMOGLOBIN 29.3 pg (28.0-32.0); MEAN CORPUSCULAR HGB CONC 30.4 g/dl (32.0-36.0); MEAN CORPUSCULAR VOLUME 96.3 fl (83.0-99.0); MEAN PLATELET VOLUME 9.7 fl (9.4-12.3); MONOCYTES ABSOLUTE AUTO 1.3 K/mm3 (0.0-0.8); MONOCYTES PERCENT AUTO 7.8 % (0.0-8.0); NEUTROPHILS ABSOLUTE AUTO 13.6 K/mm3 (1.8-7.7); NEUTROPHILS PERCENT AUTO 81.1 % (41.0-71.0); PLATELET COUNT,PLT 217 K/mm3 (150-400); RED BLOOD CELL COUNT 3.79 M/mm3 (4.10-5.30)
[2024-03-19] MEDS: methylPREDNISolone Sodium Succinate 125 MG/2 ML SDV IVPUSH ONE (19:10)
[2024-03-19 19:11] LABS: A/G RATIO 0.8 (1-2); ALBUMIN 3.3 g/dl (3.4-5.0); ANION GAP 7.7 (5-15); BILIRUBIN TOTAL 0.8 mg/dL (0.2-1.0); BUN/CREATININE RATIO 23.3 (14-18); C-REACTIVE PROTEIN 14.77 mg/dL (<0.30); CALCIUM 8.9 mg/dL (8.5-10.1); CREATININE 1.2 mg/dL (0.55-1.02); EST CRCL DRUG DOSING (CG) 30.67 mL/min; MAGNESIUM 1.7 mg/dL (1.8-2.4); POTASSIUM,K 3.7 mEq/L (3.5-5.1); PROTEIN TOTAL,TP 7.7 g/dl (6.4-8.2)
[2024-03-19] MEDS: cefTRIAXone 2 GM in Sodium Chloride 0.9% 100 ML IV ONE (20:16)
[2024-03-19] MEDS: Albuterol 6.7 GM Inhaler INH ONE (20:47)
== END 2024-03-19 21:00 | disposition home or self-care (01) ==
LOC: JD.ED 16:47
DX: J18.9 Pneumonia, unspecified organism (principal); I11.0 Hypertensive heart disease with heart failure; I50.9 Heart failure, unspecified; E78.00 Pure hypercholesterolemia, unspecified; J44.9 Chronic obstructive pulmonary disease, unspecified; Z79.52 Long term (current) use of systemic steroids; Z79.899 Other long term (current) drug therapy
CPT/HCPCS: 36415; 71045; 80053; 83735; 83880; 84484; 85025; 86140; 87428; 93005; 94640; 96365; 96375; 99285; A9270; J0696; J2919; J7620-GY